=== PATIENT | male | born 1965 | race African-American/Black ===

== ENCOUNTER 2020-03-29 06:29 | Inpatient (IN) ==
[~2020-03-29 06:29] MED LIST: Ringers Solution, Lactated 1,000 ML IVC SCH
[2020-03-29] MEDS ORDERED: CeFAZolin Syr 2,000MG/20 ML 2,000 MG/20 ML SYRINGE IVPB ONE (06:58)
[2020-03-29] MEDS ORDERED: *HR* HYDROmorphone PF 0.5 MG/0.5 ML SYRINGE IVP PRN (07:00)
[2020-03-29] MEDS ORDERED: *HR* HYDROcodone/Acet 5/325 mg TABLET PO PRN ×2 (07:00→10:23)
[2020-03-29] MEDS ORDERED: Ondansetron 4 MG/2 ML VIAL IVP PRN (07:00)
[2020-03-29] MEDS ORDERED: *HR* Midazolam HCl 2 MG/2 ML VIAL ONE (07:30)
[2020-03-29] MEDS ORDERED: *HR* Propofol 200 MG/20 ML VIAL IVP ONE ×2 (07:30→09:20)
[2020-03-29] MEDS ORDERED: *HR* FentaNYL (PF) 100 MCG/2 ML VIAL ONE (07:30)
[2020-03-29] MEDS ORDERED: Ondansetron 4 MG/2 ML VIAL ONE (07:31)
[2020-03-29] MEDS ORDERED: *HR* Rocuronium Bromide 50 MG/5 ML VIAL ONE (07:31)
[2020-03-29] MEDS ORDERED: Lidocaine -MPF 2% 2 ML VIAL ONE (07:31)
[2020-03-29] MEDS ORDERED: Lidocaine HCL 4 ML Topical Solution (Laryng-O-Jet Kit Sterile Pak) TP ONE (07:31)
[2020-03-29] MEDS ORDERED: *HR* Succinylcholine 200 MG/10 ML VIAL IVP ONE (07:31)
[2020-03-29] MEDS ORDERED: Lidocaine -MPF 4% 5 ML AMPUL ONE (07:35)
[2020-03-29] MEDS ORDERED: Ketorolac 30 MG/ML VIAL ONE (07:43)
[2020-03-29] MEDS ORDERED: *HR* HYDROMORPHONE 2 MG/ML VIAL ONE (08:37)
[2020-03-29] MEDS ORDERED: Dexmedetomidine HCl 400 MCG/100 ML MLS IVC ONE (08:38)
[2020-03-29] MEDS ORDERED: Acetaminophen IV 1,000 MG/100 ML BAG IVPB ONE (08:39)
[2020-03-29] MEDS ORDERED: Sugammadex Sodium 200 MG/2 ML VIAL IV ONE (09:09)
[2020-03-29] MEDS ORDERED: *HR* Labetalol 20 MG/4 ML SYRINGE IVP ONE (09:44)
[2020-03-29] MEDS ORDERED: *HR* HYDROmorphone (PF) 1 MG/ML SYRINGE ONE (10:09)
[2020-03-29] MEDS ORDERED: Naloxone 0.4 MG/ML INJ IVP PRN (10:23)
[2020-03-29] MEDS: Ketorolac 15 MG/ML VIAL IVP SCH ×2 (10:31→17:51)
[2020-03-29] MEDS: Ipratropium/Albuterol Neb 3 ML IH SCH ×4 (11:15→22:53)
[2020-03-29] MEDS: *HR* HYDROmorphone (PF) 1 MG/ML SYRINGE IVP PRN ×4 (11:23→20:27)
[2020-03-29] MEDS: *HR* HYDROcodone/Acet 10/325 mg TABLET PO PRN ×2 (11:23→16:01)
[2020-03-29] MEDS: 0.9 % Sodium Chloride 1,000 ML IVC SCH (11:29)
[2020-03-29] MEDS: *HR* Heparin 5,000 UNIT/ML VIAL SQ SCH ×2 (14:15→20:26)
[2020-03-29] MEDS: Gabapentin 300 MG CAPSULE PO SCH ×2 (14:16→19:29)
[2020-03-29] MEDS: Ondansetron 4 MG/2 ML VIAL IVP PRN (17:58)
[2020-03-29] MEDS: Famotidine 20 MG TABLET PO SCH (19:29)
[2020-03-29] MEDS: Melatonin 3 MG TABLET PO SCH (19:29)
[2020-03-29] MEDS: Sennosides/Docusate Sodium TABLET PO SCH (19:29)
[2020-03-29] MEDS: traZODone 50 MG TABLET PO SCH (19:31)
[2020-03-30] MEDS: Ketorolac 15 MG/ML VIAL IVP SCH ×2 (00:33→06:01)
[2020-03-30] MEDS: 0.9 % Sodium Chloride 1,000 ML IVC SCH ×2 (00:34→18:30)
[2020-03-30 01:19] LABS: Mean Corpuscular HGB Conc 33.8 g/dL (31.6-35.5); Mean Corpuscular Hemoglobin 31.4 pg (28.0-33.3); Mean Corpuscular Volume 92.9 fL (83.0-100.0); Mean Platelet Volume 10.1 fL (9.4-12.4); Platelet Count 389 K/mcL (140-400); Red Blood Count 3.12 M/mcL (4.19-5.50); Red Cell Distribution Width 12.7 % (11.5-14.5); White Blood Count 13.7 K/mcL (4.3-11.1)
[2020-03-30 01:27] LABS: Hemoglobin 9.8 g/dL (12.9-16.9)
[2020-03-30 01:30] LABS: % Iron Saturation 17 % (20-55); BUN/Creatinine Ratio 20 (6-26); Blood Urea Nitrogen 28 mg/dL (6-20); Calcium 7.9 mg/dL (8.6-10.3); Carbon Dioxide 26 mEq/L (23-29); Chloride 101 mEq/L (98-107); Glucose 147 mg/dL (70-105); Iron 44 mcg/dL (65-175); Magnesium 2.1 mg/dL (1.6-2.6); Osmolality,Calculated 282 (280-300); Potassium 4.3 mEq/L (3.5-5.1); Sodium 132 mEq/L (136-145); Transferrin 188 mg/dL (203-362); eGFR For African Americans > 60 (> 60); eGFR For Non-African Americans 54 (> 60)
[2020-03-30] MEDS: Ipratropium/Albuterol Neb 3 ML IH SCH ×6 (05:55→22:42)
[2020-03-30] MEDS: *HR* Heparin 5,000 UNIT/ML VIAL SQ SCH (06:00)
[2020-03-30] MEDS: *HR* HYDROmorphone (PF) 1 MG/ML SYRINGE IVP PRN ×9 (06:47→22:20)
[2020-03-30] MEDS: BuPROPion XL (24 HR) 150 MG TABLET PO SCH (08:15)
[2020-03-30] MEDS: Famotidine 20 MG TABLET PO SCH ×2 (08:15→20:20)
[2020-03-30] MEDS: Gabapentin 300 MG CAPSULE PO SCH ×3 (08:15→20:20)
[2020-03-30] MEDS: Sennosides/Docusate Sodium TABLET PO SCH ×2 (08:15→20:20)
[2020-03-30] MEDS: *HR* HYDROcodone/Acet 10/325 mg TABLET PO PRN ×4 (09:27→21:30)
[2020-03-30] MEDS: polyethylene glycoL 3350 17 GM POWD.PACK PO SCH (12:01)
[2020-03-30] MEDS ORDERED: DESMOPRESSIN ACETATE IVPB ONE (14:30)
[2020-03-30] MEDS ORDERED: SODIUM CHLORIDE 0.9% IVPB ONE (14:30)
[2020-03-30 14:44] LABS: Basophils % 0.2 %; Eosinophils % 0.3 %; Hematocrit 24.8 % (37.5-50.1); Immature Granulocytes % 0.4 % (0-4); Lymphocytes # 1.8 K/mcL (0.6-4.6); Lymphocytes % 14.5 %; Mean Corpuscular HGB Conc 33.1 g/dL (31.6-35.5); Mean Corpuscular Hemoglobin 30.8 pg (28.0-33.3); Mean Corpuscular Volume 93.2 fL (83.0-100.0); Mean Platelet Volume 9.6 fL (9.4-12.4); Monocytes # 0.8 K/mcL (0.0-1.3); Monocytes % 6.6 %; Neutrophils # 9.9 K/mcL (1.6-8.9); Platelet Count 356 K/mcL (140-400); Red Blood Count 2.66 M/mcL (4.19-5.50); Red Cell Distribution Width 12.7 % (11.5-14.5); White Blood Count 12.7 K/mcL (4.3-11.1)
[2020-03-30 14:47] LABS: Hemoglobin 8.2 g/dL (12.9-16.9)
[2020-03-30] MEDS: Melatonin 3 MG TABLET PO SCH (20:20)
[2020-03-30] MEDS: traZODone 50 MG TABLET PO SCH (20:20)
[2020-03-31] MEDS: *HR* HYDROmorphone (PF) 1 MG/ML SYRINGE IVP PRN ×8 (00:22→21:38)
[2020-03-31 01:16] LABS: Hematocrit 23.9 % (37.5-50.1); Hemoglobin 7.9 g/dL (12.9-16.9); Mean Corpuscular HGB Conc 33.1 g/dL (31.6-35.5); Mean Corpuscular Hemoglobin 30.6 pg (28.0-33.3); Mean Corpuscular Volume 92.6 fL (83.0-100.0); Mean Platelet Volume 10.1 fL (9.4-12.4); Platelet Count 355 K/mcL (140-400); Red Blood Count 2.58 M/mcL (4.19-5.50); Red Cell Distribution Width 12.7 % (11.5-14.5); White Blood Count 14.2 K/mcL (4.3-11.1)
[2020-03-31] MEDS: *HR* HYDROcodone/Acet 10/325 mg TABLET PO PRN ×3 (01:30→13:38)
[2020-03-31 01:32] LABS: BUN/Creatinine Ratio 28 (6-26); Blood Urea Nitrogen 27 mg/dL (6-20); Calcium 8.1 mg/dL (8.6-10.3); Carbon Dioxide 27 mEq/L (23-29); Chloride 97 mEq/L (98-107); Glucose 121 mg/dL (70-105); Osmolality,Calculated 276 (280-300); Potassium 4.3 mEq/L (3.5-5.1); Sodium 130 mEq/L (136-145); eGFR For African Americans > 60 (> 60); eGFR For Non-African Americans > 60 (> 60)
[2020-03-31] MEDS: 0.9 % Sodium Chloride 1,000 ML IVC SCH (02:22)
[2020-03-31] MEDS: Ipratropium/Albuterol Neb 3 ML IH SCH ×2 (03:29→07:33)
[2020-03-31] MEDS ORDERED: Iron Sucrose Complex 400 MG in 0.9 % Sodium Chloride 250 ML IVPB ONE (08:46)
[2020-03-31] MEDS ORDERED: Thiamine (B-1) 100 MG in 0.9 % Sodium Chloride 50 ML IVPB ONE (08:47)
[2020-03-31] MEDS ORDERED: Folic Acid 1 MG in 0.9 % Sodium Chloride 50 ML IVPB ONE (08:47)
[2020-03-31] MEDS: BuPROPion XL (24 HR) 150 MG TABLET PO SCH (09:47)
[2020-03-31] MEDS: Gabapentin 400 MG CAPSULE PO SCH ×3 (09:47→21:41)
[2020-03-31] MEDS: Sennosides/Docusate Sodium TABLET PO SCH ×2 (09:47→21:42)
[2020-03-31] MEDS: Famotidine 20 MG TABLET PO SCH ×2 (09:48→21:40)
[2020-03-31] MEDS: polyethylene glycoL 3350 17 GM POWD.PACK PO SCH (09:48)
[2020-03-31] MEDS: Ondansetron 4 MG/2 ML VIAL IVP PRN (15:45)
[2020-03-31 18:21] LABS: Hemoglobin 7.4 g/dL (12.9-16.9)
[2020-03-31] MEDS: Melatonin 3 MG TABLET PO SCH (21:41)
[2020-03-31] MEDS: traZODone 50 MG TABLET PO SCH (21:42)
[2020-04-01] MEDS: *HR* HYDROmorphone (PF) 1 MG/ML SYRINGE IVP PRN ×12 (00:01→23:33)
[2020-04-01] MEDS: *HR* HYDROcodone/Acet 10/325 mg TABLET PO PRN ×4 (02:05→20:51)
[2020-04-01 03:55] LABS: BUN/Creatinine Ratio 18 (6-26); Blood Urea Nitrogen 13 mg/dL (6-20); Calcium 8.2 mg/dL (8.6-10.3); Carbon Dioxide 29 mEq/L (23-29); Chloride 98 mEq/L (98-107); Glucose 107 mg/dL (70-105); Osmolality,Calculated 275 (280-300); Potassium 4.5 mEq/L (3.5-5.1); Sodium 132 mEq/L (136-145); eGFR For African Americans > 60 (> 60); eGFR For Non-African Americans > 60 (> 60)
[2020-04-01] MEDS: Gabapentin 400 MG CAPSULE PO SCH ×3 (08:24→19:23)
[2020-04-01] MEDS: Sennosides/Docusate Sodium TABLET PO SCH ×2 (08:24→19:23)
[2020-04-01] MEDS: BuPROPion XL (24 HR) 150 MG TABLET PO SCH (08:25)
[2020-04-01] MEDS: polyethylene glycoL 3350 17 GM POWD.PACK PO SCH (08:25)
[2020-04-01] MEDS: Famotidine 20 MG TABLET PO SCH ×2 (08:25→19:23)
[2020-04-01] MEDS ORDERED: DESMOPRESSIN ACETATE IVPB ONE (15:39)
[2020-04-01] MEDS ORDERED: SODIUM CHLORIDE 0.9% IVPB ONE (15:39)
[2020-04-01] MEDS: Melatonin 3 MG TABLET PO SCH (19:23)
[2020-04-01] MEDS: traZODone 50 MG TABLET PO SCH (19:24)
[2020-04-02] MEDS: *HR* HYDROcodone/Acet 10/325 mg TABLET PO PRN ×4 (02:11→21:48)
[2020-04-02] MEDS: *HR* HYDROmorphone (PF) 1 MG/ML SYRINGE IVP PRN ×5 (02:17→11:31)
[2020-04-02 07:50] LABS: Hematocrit 23.3 % (37.5-50.1); Hemoglobin 7.7 g/dL (12.9-16.9); Mean Corpuscular Hemoglobin 30.7 pg (28.0-33.3); Mean Corpuscular Volume 92.8 fL (83.0-100.0); Mean Platelet Volume 9.4 fL (9.4-12.4); Platelet Count 401 K/mcL (140-400); Red Blood Count 2.51 M/mcL (4.19-5.50); White Blood Count 15.1 K/mcL (4.3-11.1)
[2020-04-02] MEDS: polyethylene glycoL 3350 17 GM POWD.PACK PO SCH (08:20)
[2020-04-02] MEDS: Sennosides/Docusate Sodium TABLET PO SCH ×2 (08:20→19:59)
[2020-04-02] MEDS: Famotidine 20 MG TABLET PO SCH (08:20)
[2020-04-02] MEDS: BuPROPion XL (24 HR) 150 MG TABLET PO SCH (08:20)
[2020-04-02] MEDS: Gabapentin 400 MG CAPSULE PO SCH ×3 (08:20→19:59)
[2020-04-02] MEDS: Ondansetron 4 MG/2 ML VIAL IVP PRN (09:24)
[2020-04-02 10:16] LABS: Adenovirus Not Detected (Not Detect); Bordetella Pertussis Not Detected (Not Detect); Chlamydophila pneumoniae Not Detected (Not Detect); Coronavirus 229E Not Detected (Not Detect); Coronavirus HKU1 Not Detected (Not Detect); Coronavirus NL63 Not Detected (Not Detect); Coronavirus OC43 Not Detected (Not Detect); Human Metapneumovirus Not Detected (Not Detect); Human Rhinovirus/Enterovirus Not Detected (Not Detect); Influenza A Subtype 2009 H1 Not Detected (Not Detect); Influenza B Not Detected (Not Detect); Mycoplasma pneumoniae Not Detected (Not Detect); Parainfluenza Virus 1 Not Detected (Not Detect); Parainfluenza Virus 2 Not Detected (Not Detect); Parainfluenza Virus 3 Not Detected (Not Detect); Parainfluenza Virus 4 Not Detected (Not Detect); Respiratory Syncytial Virus Not Detected (Not Detect); SARS-CoV-2 Not Detected (Not Detect)
[2020-04-02] MEDS ORDERED: *HR* Succinylcholine 200 MG/10 ML VIAL IVP ONE (13:29)
[2020-04-02] MEDS ORDERED: Lidocaine -MPF 2% 2 ML VIAL ONE (13:31)
[2020-04-02] MEDS ORDERED: *HR* FentaNYL (PF) 100 MCG/2 ML VIAL ONE (13:31)
[2020-04-02] MEDS ORDERED: *HR* Propofol 200 MG/20 ML VIAL IVP ONE (13:31)
[2020-04-02] MEDS ORDERED: *HR* FentaNYL (PF) 100 MCG/2 ML VIAL IVP PRN (13:51)
[2020-04-02] MEDS ORDERED: Naloxone 0.4 MG/ML INJ IVP PRN ×2 (13:51→16:56)
[2020-04-02] MEDS ORDERED: Nitroglycerin 0.4 MG TAB.SUBL SL PRN (13:51)
[2020-04-02] MEDS ORDERED: Albuterol 2.5 MG/3 ML NEBULIZER IH PRN ×2 (13:51→16:56)
[2020-04-02] MEDS ORDERED: Ondansetron 4 MG/2 ML VIAL IVP PRN ×2 (13:51→16:56)
[2020-04-02] MEDS ORDERED: CeFAZolin Syr 2,000MG/20 ML 2,000 MG/20 ML SYRINGE IVPB ONE (14:05)
[2020-04-02] MEDS ORDERED: Sugammadex Sodium 200 MG/2 ML VIAL IV ONE (15:23)
[2020-04-02] MEDS ORDERED: *HR* HYDROMORPHONE 2 MG/ML VIAL ONE (15:38)
[2020-04-02] MEDS: *HR* HYDROmorphone PF 0.5 MG/0.5 ML SYRINGE IVP PRN ×2 (16:05→16:10)
[2020-04-02] MEDS: *HR* Labetalol 20 MG/4 ML SYRINGE IVP PRN ×2 (16:12→16:21)
[2020-04-02] MEDS: *HR* HYDROmorphone (PF) 1 MG/ML SYRINGE IVP SCH ×3 (17:16→21:47)
[2020-04-02] MEDS: 0.9 % Sodium Chloride 1,000 ML IVC SCH (17:37)
[2020-04-02] MEDS: Melatonin 3 MG TABLET PO SCH (19:59)
[2020-04-02] MEDS: traZODone 50 MG TABLET PO SCH (19:59)
[2020-04-03] MEDS: *HR* HYDROmorphone (PF) 1 MG/ML SYRINGE IVP SCH ×12 (00:02→22:09)
[2020-04-03 01:25] LABS: Hematocrit 23.7 % (37.5-50.1); Hemoglobin 7.8 g/dL (12.9-16.9); Mean Corpuscular HGB Conc 32.9 g/dL (31.6-35.5); Mean Corpuscular Hemoglobin 31.2 pg (28.0-33.3); Mean Corpuscular Volume 94.8 fL (83.0-100.0); Mean Platelet Volume 9.6 fL (9.4-12.4); Platelet Count 486 K/mcL (140-400); Red Cell Distribution Width 12.9 % (11.5-14.5); White Blood Count 14.9 K/mcL (4.3-11.1)
[2020-04-03 01:45] LABS: BUN/Creatinine Ratio 15 (6-26); Blood Urea Nitrogen 12 mg/dL (6-20); Calcium 8.4 mg/dL (8.6-10.3); Carbon Dioxide 28 mEq/L (23-29); Chloride 98 mEq/L (98-107); Glucose 122 mg/dL (70-105); Magnesium 2.1 mg/dL (1.6-2.6); Osmolality,Calculated 275 (280-300); Potassium 4.6 mEq/L (3.5-5.1); Sodium 132 mEq/L (136-145); eGFR For African Americans > 60 (> 60); eGFR For Non-African Americans > 60 (> 60)
[2020-04-03] MEDS: *HR* HYDROcodone/Acet 10/325 mg TABLET PO PRN ×2 (02:06→06:44)
[2020-04-03] MEDS: 0.9 % Sodium Chloride 1,000 ML IVC SCH (05:59)
[2020-04-03] MEDS: polyethylene glycoL 3350 17 GM POWD.PACK PO SCH (07:38)
[2020-04-03] MEDS: Gabapentin 400 MG CAPSULE PO SCH ×3 (07:39→20:03)
[2020-04-03] MEDS: Sennosides/Docusate Sodium TABLET PO SCH ×2 (07:39→20:02)
[2020-04-03] MEDS: BuPROPion XL (24 HR) 150 MG TABLET PO SCH (07:39)
[2020-04-03] MEDS: Ibuprofen 200 MG TABLET PO SCH ×3 (10:38→23:32)
[2020-04-03] MEDS: *HR* OxyCODONE/APAP 10/325 TABLET PO PRN ×3 (13:38→23:32)
[2020-04-03] MEDS: Melatonin 3 MG TABLET PO SCH (22:08)
[2020-04-03] MEDS: traZODone 50 MG TABLET PO SCH (22:08)
[2020-04-04] MEDS: *HR* HYDROmorphone (PF) 1 MG/ML SYRINGE IVP SCH ×6 (00:53→10:42)
[2020-04-04] MEDS: *HR* OxyCODONE/APAP 10/325 TABLET PO PRN ×2 (04:20→09:38)
[2020-04-04] MEDS: Ibuprofen 200 MG TABLET PO SCH (05:55)
[2020-04-04] MEDS: BuPROPion XL (24 HR) 150 MG TABLET PO SCH (08:14)
[2020-04-04] MEDS: polyethylene glycoL 3350 17 GM POWD.PACK PO SCH (08:15)
[2020-04-04] MEDS: Gabapentin 400 MG CAPSULE PO SCH (08:15)
[2020-04-04] MEDS: Sennosides/Docusate Sodium TABLET PO SCH (08:15)
[2020-04-04 09:42] VITALS: BP 159/89
== END 2020-04-04 11:26 | disposition home or self-care (01) | DRG 164 ==
LOC: SAMDAY 06:29 → ICNU 10:11 → 2NNU 15:32
PROVIDERS: ADMIT Thoracic Surgery (Cardiothoracic Vascular Surgery); ATTEND Thoracic Surgery (Cardiothoracic Vascular Surgery)